=== PATIENT | female | born 1985 | race Caucasian/White ===

== ENCOUNTER → 2016-10-10 | Outpatient (CLI) | payer BC ==
[~2016-10-10] MED LIST: ACET-749 PO; IBUP-1427 PO; PRENTAB26 PO
[2016-10-13 17:35] LABS: PARVOVIRUS IgM INDEX 0.1 (<0.9)
== END | disposition home or self-care (01) ==
LOC: C.LAB1850 12:16
PROVIDERS: ATTEND Obstetrics & Gynecology
DX: Z20.828 Contact with and (suspected) exposure to other viral communicable diseases (principal)

== ENCOUNTER → 2016-10-31 | Outpatient (CLI) | payer BC ==
[2016-10-31 13:57] LABS: URINE APPEARANCE CLEAR (CLEAR); URINE BILIRUBIN NEG (NEG); URINE COLOR YELLOW; URINE NITRITE NEG (NEG); URINE PH 7.5 (4.5-7.5); URINE SPECIFIC GRAVITY 1.013 (1.000-1.030); UROBILINOGEN NEG (NEG)
[2016-10-31 14:03] LABS: MANUAL MICROSCOPIC REQUIRED? NO; REVIEW REQ? NO
== END | disposition home or self-care (01) ==
LOC: C.LABSPEC 13:23
PROVIDERS: ATTEND Obstetrics & Gynecology
DX: Z34.81 Encounter for supervision of other normal pregnancy, first trimester (principal)

== ENCOUNTER → 2016-11-07 | Outpatient (CLI) | payer BC ==
[2016-11-07 13:11] LABS: BASO % 0.4 %; BASO ABS # 0.03 K/uL (0-0.2); COMPLETE YES; EOS % 0.8 %; HEMATOCRIT 40.2 % (37-47); IG% 0.1 %; LYMPH % 21.5 %; LYMPH ABS # 1.52 K/uL (1.2-3.4); MEAN CELL VOLUME 89.7 fL (80-100); MEAN CORPUSCULAR HEMOGLOBIN 30.6 pg (25-34); MEAN CORPUSCULAR HGB CONC 34.1 g/dl (32-36); MONO % 4.5 %; NEUT % 72.7 %; PLATELET COUNT 233 K/uL (130-400); RED BLOOD COUNT 4.48 M/uL (4.2-5.4); WHITE BLOOD COUNT 7.07 K/uL (4.8-10.8)
[2016-11-10 14:08] LABS: CHLAMYDIA TRACH RNA*** NOT DETECTED (NOT DETECTED); GC (NEIS GONORRHOEAE)RNA** NOT DETECTED (NOT DETECTED)
== END | disposition home or self-care (01) ==
LOC: C.LAB1850 10:46
PROVIDERS: ATTEND Obstetrics & Gynecology
DX: Z34.81 Encounter for supervision of other normal pregnancy, first trimester (principal)

== ENCOUNTER → 2017-03-17 | Outpatient (CLI) | payer BC ==
[2017-03-17 13:54] LABS: URINE APPEARANCE CLEAR (CLEAR); URINE BILIRUBIN NEG (NEG); URINE COLOR DK YELLOW; URINE EPITHELIAL CELL AUTO >30 /lpf (0-5); URINE NITRITE NEG (NEG); URINE PH 7.5 (4.5-7.5); URINE SPECIFIC GRAVITY 1.016 (1.000-1.030); UROBILINOGEN NEG (NEG)
[2017-03-17 13:55] LABS: MANUAL MICROSCOPIC REQUIRED? NO; REVIEW REQ? NO
== END | disposition home or self-care (01) ==
LOC: C.LABSPEC 12:13
PROVIDERS: ATTEND Obstetrics & Gynecology
DX: Z34.82 Encounter for supervision of other normal pregnancy, second trimester (principal)

== ENCOUNTER → 2017-05-05 | Outpatient (CLI) | payer OTHER | END | disposition home or self-care (01) | LOC: C.LABSPEC 13:23 | PROVIDERS: ATTEND Obstetrics & Gynecology | DX: Z34.83 Encounter for supervision of other normal pregnancy, third trimester (principal) ==

== ENCOUNTER 2017-05-31 17:41 | Inpatient (IN) | payer OTHER ==
[~2017-05-31] VITALS: Ht 165.1 cm; Wt 74.5 kg
[2017-05-31 18:19] VITALS: Ht 165.1 cm; Wt 74.5 kg
[2017-05-31] MEDS ORDERED: PEDICHW50 PO (18:23)
[2017-05-31] MEDS ORDERED: CALC500C70 PO (18:23)
[2017-05-31] MEDS ORDERED: LACTATED RINGER'S 1000ML 1,000 ML IV PRN (20:51)
[2017-05-31] MEDS ORDERED: LACTATED RINGER'S 1000ML 1,000 ML IV SCH (20:51)
[2017-05-31 21:27] LABS: HEMOGLOBIN 13.1 g/dL (12.0-16.0); MEAN CELL VOLUME 91.3 fL (80-100); MEAN CORPUSCULAR HEMOGLOBIN 31.5 pg (25-34); MEAN CORPUSCULAR HGB CONC 34.5 g/dl (32-36); MEAN PLATELET VOLUME 9.9 fL (7.4-10.4); PLATELET COUNT 213 K/uL (130-400); RED CELL DISTRIBUTION WIDTH CV 14.4 % (11.5-14.5); RED CELL DISTRIBUTION WIDTH SD 47.6 fL (36.4-46.3); WHITE BLOOD COUNT 12.61 K/uL (4.8-10.8)
[2017-05-31] MEDS ORDERED: FENTANYL CITRATE INJ 50 MCG/1 ML 2 ML VIAL ONE (21:39)
[2017-05-31] MEDS ORDERED: EpHEDrine SULFATE INJ 50 MG/ML AMP ONE (21:39)
[2017-05-31] MEDS ORDERED: FENTANYL 2MCG/ML ROPIV 1.25MG/ML 100ML BAG EPI ONE (21:39)
[2017-05-31] MEDS ORDERED: BUPIVACAINE 0.25% 30 ML VIAL ONE (21:39)
[2017-05-31] MEDS ORDERED: NALOXONE HCL INJ 1 MG in SODIUM CHLORIDE 0.9% 1000ML 1,000 ML IV PRN (22:23)
[2017-05-31] MEDS ORDERED: LACTATED RINGER'S 1000ML 500 ML IV PRN (22:23)
[2017-05-31] MEDS ORDERED: FENTANYL 2MCG/ML ROPIV 1.25MG/ML 100ML BAG EPI PRN (22:30)
[2017-05-31] MEDS ORDERED: DiphenhydrAMINE HCL 50 MG/ML VIAL IV PRN (22:30)
[2017-05-31] MEDS ORDERED: EpHEDrine SULFATE INJ 50 MG/ML AMP IV PRN (22:30)
[2017-05-31] MEDS ORDERED: NALOXONE HCL INJ 0.4 MG/1 ML VIAL/CARP IV PRN (22:30)
[2017-05-31] MEDS ORDERED: NALBUPHINE HCL INJ 10 MG/ML AMP IV PRN (22:30)
[2017-06-01] MEDS ORDERED: OXYTOCIN 30 UNITS/500ML NSS IV ONE (04:08)
[2017-06-01] MEDS ORDERED: HYDROCORTISONE ACETATE 25 MG SUPP PR PRN (05:15)
[2017-06-01] MEDS ORDERED: BENZOCAINE 20% AER SPR 82.5 GM CAN EXT PRN (05:15)
[2017-06-01] MEDS ORDERED: SUPERCREAM 0.870 % 15GM JAR EXT PRN (05:15)
[2017-06-01] MEDS ORDERED: LANOLIN OINT EXT PRN (05:15)
[2017-06-01] MEDS ORDERED: OXYCODONE/ACETAMINOPHEN 5-325 TAB PO PRN (05:15)
[2017-06-01] MEDS ORDERED: OXYTOCIN 30 UNITS/500ML NSS IV PRN (05:15)
--- NOTE | 2017-06-01 06:45 | Anesthesia Procedure Note ---
Anesthesia Epidural Removal Nt Date & Time Jun 01, 2017 at 06:45 Vital Signs Pain Intensity: 1.0 Notes Mental Status: alert / awake / arousable, participated in evaluation Nausea / Vomiting: adequately controlled Pain: adequately controlled Airway Patency, RR, SpO2: stable & adequate BP & HR: stable & adequate Hydration State: stable & adequate Neuraxial Anesthesia: was administered Anesthetic Complications: no major complications apparent, pt satisfied with anesthetic care Epidural: removed without complications, with tip intact
[2017-06-01 08:30] VITALS: BP 112/70; PULSE 100; TEMP 37.2; O2SAT 96
[2017-06-01] MEDS: IBUPROFEN 600 MG TAB PO PRN ×3 (08:54→18:17)
[2017-06-01] MEDS: DOCUSATE SODIUM 100 MG CAP PO SCH ×2 (08:55→20:01)
--- NOTE | 2017-06-01 10:09 | DELIVERY SUMMARY ---
DATE OF OPERATION: 06/01/2017 PREDELIVERY DIAGNOSES: 1. A 31-year-old G3, P 2-0-0-2 at 39 weeks and 6 days. 2. Spontaneous labor. 4. History of fourth degree perineal laceration in G1. POSTDELIVERY DIAGNOSES: Same. PROCEDURE: 1. Spontaneous vaginal delivery. 2. Repair of third degree perineal laceration. ESTIMATED BLOOD LOSS: 300 mL. FINDINGS: Viable male with Apgars 9 and 10. Weight pending. Please see nursery records. DESCRIPTION OF DELIVERY: The patient progressed to complete with epidural anesthesia and then began to push. She then spontaneously vaginally delivered a viable male in the cephalic presentation. The head delivered in occiput anterior position. There was a nuchal cord x1, unable to be reduced. Therefore, the baby was delivered through the anterior and posterior shoulders were delivered followed by the body. The baby was placed on mother's abdomen. A spontaneous cry was heard. Delayed cord clamping was employed after 1 minute. The cord was doubly clamped and cut. Cord blood was obtained. The placenta was then delivered spontaneously intact with a 3-vessel cord. The uterus and vagina were swept of all clots and debris. Pitocin was started. The uterus became firm. The cervix, vagina and perineum were inspected and a third degree perineal laceration was noted. This was repaired in standard fashion with 4 [id number] sutures reapproximating the muscle capsule of the anal sphincter. Next, the resultant second degree perineal laceration was repaired in standard fashion with 3-0 Vicryl in a running stitch. Rectal exam prior to repair revealed no lacerations in the rectal mucosa and rectal exam following the repair revealed no sutures in the rectum. Excellent hemostasis was observed. The patient tolerated the procedure well. All sponge, instruments, and needle counts were correct at the conclusion of the delivery x2. The mother and baby recovered in the room in stable and good condition. I attest to the content of the Intraoperative Record and any orders documented therein. Any exception s are noted below.
[2017-06-01 11:57] VITALS: BP 111/69; PULSE 92; TEMP 37.1; O2SAT 97
[2017-06-01 15:30] VITALS: BP 111/62; PULSE 94; TEMP 36.4
[2017-06-01 19:00] VITALS: BP 107/69; PULSE 98; TEMP 36.4
[2017-06-01 23:35] VITALS: BP 103/64; PULSE 94; TEMP 36.8
[2017-06-02 06:40] LABS: HEMOGLOBIN 10.8 g/dL (12.0-16.0)
--- NOTE | 2017-06-02 06:41 | Progress Note ---
Subjective Jun 02, 2017. Subjective conversation w/ patient (Patient seen and examined at bedside) Ambulation: ambulating normally Voiding: no voiding problems Diet Tolerance: Regular Diet Lochia: Moderate Feeding Type: Breast Feeding (solely pumping) Pain: 6/10 in perineal region, improved with analgesia Review of Systems Constitutional: No fever, No chills Respiratory: No shortness of breath Cardiac: No chest pain Abdomen: No nausea, No vomiting Female : No dysuria Objective Vital Signs Date Time Temp Pulse Resp B/P (MAP) Pulse Ox O2 Delivery O2 Flow Rate FiO2 06/01/17 23:37 Room Air 06/01/17 23:35 36.8 94 18 103/64 (77) Room Air 06/01/17 19:00 36.4 98 20 107/69 (82) Room Air 06/01/17 15:30 36.4 94 20 111/62 (78) Room Air 06/01/17 15:30 Room Air 06/01/17 11:57 37.1 92 18 111/69 (83) 97 Room Air 06/01/17 08:30 96 Room Air 06/01/17 08:30 37.2 100 16 112/70 (84) 96 Room Air Physical Exam General Appearance: WELL-APPEARING, WD/WN, NO APPARENT DISTRESS Respiratory/Chest: lungs clear, normal breath sounds Cardiovascular: regular rate, rhythm Abdomen: soft Fundus: Firm, Non-Tender, Relation to Umbilicus (1 belo) Extremities: no calf tenderness Laboratory Results Last 24 Hours Test 06/02/17 06:15 Medications Current Inpatient Medications Medications (Trade) Dose Ordered Sig/Olga Route Start Time Stop Time Status Last Admin Dose Admin Oxytocin (Pitocin IV) 30 units UD PRN IV 06/01/17 05:15 07/01/17 05:14 Benzocaine (Dermoplast Aero Spr) 1 appln PRN PRN EXT 06/01/17 05:15 07/01/17 05:14 06/01/17 08:54 1 APPLN Cocaine HCl (Supercream 0.870% Cr) BID PRN EXT 06/01/17 05:15 06/15/17 05:14 Hydrocortisone Acetate (Anusol Hc Supp) [address] 06/01/17 05:15 07/01/17 05:14 Lanolin (Lanolin Oint) PRN PRN EXT 06/01/17 05:15 07/01/17 05:14 Ibuprofen (Motrin Tab) 600 mg Q4H PRN PO 06/01/17 05:15 07/01/17 05:14 06/01/17 18:17 600 MG Oxycodone/ Acetaminophen (Percocet 5-325mg Tab) 1 tab Q4H PRN PO 06/01/17 05:15 06/15/17 05:14 06/01/17 16:53 1 TAB Bisacodyl (Dulcolax Tab) 5 mg 20 PO 06/02/17 20:00 06/02/17 20:01 Docusate Sodium (coLACE CAP) 100 mg BID PO 06/01/17 08:00 07/01/17 07:59 06/01/17 20:01 100 MG Assessment and Plan Post- Day#: 1 Continue Routine Care: 31 year old s/p NVD w/3rd degree perineal tear day 1 - O+, rubella immune, GBS -ve - pt doing well clinically - continue to encourage ambulation, and analgesia prn - vitals reviewed and wnl - pt would like d/c today so will review d/c instructions Resident Physician Supervision Note: I was present with Dr. Shi during the history and exam. I discussed the case with the resident and agree with the findings and plan as documented in the note. Any exceptions or clarifications are listed here: PPD#2 doing well. Yesterday evening, was called into room - patient's was very concerned that pt had taken one percocet and was planning to breastfeed. He was very unhappy with the idea of any opioid getting to the baby. I discussed with both parents that taking one percocet during the period, while there is a very small amount of narcotic excreted in breastmilk, is safe during . He responded with "well that will not happen again." This morning, I questioned patient about his response, asked if she felt safe at home, asked if he is controlling at home. She stated she feels safe at home. She feels that he is very supportive. 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 Documented By: Evelia Cabezas Resident Tracking Resident Involvement: Resident Care Provided Care Provided: OB Delivery
--- NOTE | 2017-06-02 07:31 | Discharge Instructions ---
Discharge Instructions Date of Service Jun 02, 2017. Admission Reason for Admission: Spontaneous Onset Of Labor Discharge Discharge Diagnosis / Problem: Vaginal Delivery Discharge Goals Goal(s): Routine recovery after delivery Medications Continue Dispensed Medications: supercream, dermaplast, tucks, lansinoh Activity Recommendations Activity Limitations: per Instructions/Follow-up section . Instructions / Follow-Up Instructions / Follow-Up ACTIVITY RECOMMENDATIONS: * Gradual return to full activity over the next 2-3 weeks. * No lifting - nothing heavier than baby over the next 2-3 weeks. * Do not engage in vigorous exercise, sexual activity or sports until cleared by your physician. * Do not drive or operate any motorized equipment until cleared by your physician. * You may shower/bathe daily. MEDICATIONS: For discomfort or pain, you may use Acetaminophen (Tylenol), Ibuprofen (Advil), or Naproxen (Aleve) following the package directions. For constipation you may use Colace following the package directions. BREAST CARE: If you are not breast feeding: * Wear a supportive bra 24 hours a day for one to two weeks. * Avoid stimulating your breasts and nipples as much as possible during the first few weeks after delivery. * When taking a shower, have the warm water hit your back, not breasts. * When your breasts feel full, apply ice packs. Usually three to four times a day helps ease the discomfort. * Take a mild pain medication (Tylenol / Motrin) when you are uncomfortable. If breast feeding: * Use breast milk to lubricate nipples. Lansinoh cream may be used for sore nipples. You do not need to remove cream prior to breast feeding. If using a different brand of cream, check the label for directions regarding removal of cream prior to nursing. * Wear a supportive bra. * If having problems with breasts or breast feeding, call a etl consultant or your health care provider. EPISIOTOMY CARE: After delivery, if you have an episiotomy (stitches), the following steps will ease discomfort and aid healing. * For the first 24 hours after delivery, place ice packs next to your episiotomy to help reduce swelling. * After the first 24 hour-period, sitz baths, either portable or in the tub, are suggested. A shower with a shower arm sprayed over the episiotomy may be comforting. * Renetta care should be done after each voiding and bowel movement. Squirt warm water from a plastic bottle over the perineum (region of the body between the anus and urinary opening) and pat dry. * Use Dermoplast to ease discomfort. Shake container. [place] directly over the episiotomy. Place a Tucks on a clean sanitary pad next to your episiotomy. SPECIAL CARE INSTRUCTIONS: When you are discharged from the hospital, it is important for you to follow the instructions listed below: * During the first week at home, you should be able to care for yourself and your baby. In addition, the usual light household activities are encouraged. * Limit your activities to the way you feel. Do not try to clean the house or move furniture. Be sensible. * If you actively engage in sports and have done so up until the time of your delivery, you may resume these activities as soon as you feel able. This may take up to one month or even longer. Use good judgment. * Continue to take your vitamins for at least six weeks after the of your baby. * Your diet need not be limited unless you were on a special diet before your delivery. Breast-feeding mothers need around 2500 calories per day and at least 64-80 ounces of fluid per day (8 to 10 glasses). * You should eat foods from the four major food groups. Crash diets or fad diets are to be avoided. Eating lean meats, fresh fruits and vegetables, low-fat dairy products, high fiber foods and a regular exercise program, will help you get back to your pre- weight without putting your health at risk. * Constipation is sometimes a problem after delivery. Take a mild laxative as needed. If breast feeding, Milk of Magnesia is acceptable to use. You may use a suppository or Fleets enema if no episiotomy. * A daily shower or tub bath is suggested. Be sure to thoroughly and gently dry the perineum. * A bloody vaginal discharge will usually continue until around four weeks post . A small amount of bleeding may continue for as long as six weeks. Vaginal discharge changes from the bright red bleeding after delivery to pink then brownish and finally yellowish-pink before becoming white and disappearing. * Bleeding may increase with activity. Your first period may come in 4-8 weeks. If you are breast feeding, your period may be delayed even longer. * [place] (sex) can begin whenever both you and your partner feel comfortable and do not have any form of genital infection. It is recommended that you wait at least six weeks for internal and external healing to occur. If you have questions, please talk to your health care practitioner. A condom should be used to prevent infection and . * Foreplay, gentle intercourse and lubrication is very important the first several times to prevent pain. A water-based lubricant such as K-Y jelly or Astroglide may be used. * If you have RH negative blood and your baby is RH positive, you will receive RHOGAM by injection prior to discharge. The nurse will give you a card to keep with you that has the date and place that you received RHOGAM after delivery. * During your care, you had a Rubella screen done to check for the presence of rubella antibodies in your blood. If your test was negative, you will receive a Rubella vaccine prior to discharge. This vaccine may cause a fever, soreness at the injection site and flu-like symptoms. If these symptoms persist, notify your health care practitioner. is not advised for one month after a Rubella vaccine. * Verbalizes understanding of car seat law as reviewed with patient nursing. * Car Seat hand-out given and reviewed with patient by nursing. * Shaken baby information reviewed with patient by nursing. Call you doctor if: * Heavy bleeding (saturating several pads an hour) or passing clots the size of your fist. * A fever >101 degrees F (38.3 degrees C) on two occasions four hours apart and /or chills. * Unusual pain in the pelvic or vaginal areas. * "Baby Blues" lasting longer than two weeks. If you have any questions or concerns, call your health care practitioner at . FOLLOW UP VISIT: * Please call the office at to schedule a 6 week examination. It is important you keep this appointment. It is important for you to make arrangements for either yearly or twice yearly check-ups thereafter. Current Hospital Diet Patient's current hospital diet: Regular OB Diet Discharge Diet Recommended Diet: Regular Diet Pending Studies Studies pending at discharge: no Medical Emergencies . Who to Call and When: Medical Emergencies: If at any time you feel your situation is an emergency, please call [phone] immediately. . Non-Emergent Contact Non-Emergency issues call your: Primary Care Provider . . "Provider Documentation" section prepared by Cordelia Shi. . VTE Core Measure Inpt VTE Proph given/why not?: Treatment not indicated
[2017-06-02 07:40] VITALS: BP 119/81; PULSE 76; TEMP 37.2; O2SAT 99
[2017-06-02] MEDS: DOCUSATE SODIUM 100 MG CAP PO SCH (07:52)
[2017-06-02] MEDS: IBUPROFEN 600 MG TAB PO PRN ×2 (07:52→13:06)
[2017-06-02 13:55] VITALS: BP_DIAS 81; PULSE 76; TEMP 37.2
[2017-06-02] MEDS ORDERED: BISACODYL 5 MG TABEC PO SCH (20:00)
== END 2017-06-02 13:55 | disposition home or self-care (01) | DRG 775 ==
LOC: C.LD 17:41 → C.OPB 17:41 → C.LD 20:53 → C.OPB 20:53 → C.OBG 06-01 08:28
PROVIDERS: ADMIT Obstetrics & Gynecology; ATTEND Obstetrics & Gynecology
PROC: 10E0XZZ Delivery of Products of Conception, External Approach (ICD-10-PCS; principal; 2017-06-01)
PROC: 0DQR0ZZ Repair Anal Sphincter, Open Approach (ICD-10-PCS; principal; 2017-06-01)
DX: O70.20 Third degree perineal laceration during delivery, unspecified (principal); Z3A.39 39 weeks gestation of pregnancy; Z37.0 Single live birth